=== PATIENT | female | born 2000 | race Caucasian/White ===

== ENCOUNTER 2022-03-30 18:14 | Emergency (ER) | payer OTHER ==
[2022-03-30] MEDS ORDERED: ACETAMINOPHEN TAB 500 MG TAB PO STA (19:41)
--- NOTE | 2022-03-30 20:41 | ED ---
Back Pain HPI - General Chief Complaint: Back Pain/Injury Stated Complaint: Lower Lt back pain/Preg/Sent by Urgent care Time Seen by Provider: 03/30/22 19:32 Source: patient Limitations: no limitations - History of Present Illness Initial Comments: Patient is a 21-year-old female presenting with chief complaint of left-sided leg and back pain. Patient was seen at urgent care today for this pain. Patient states that she does heavy lifting daily at work. States that the pain started today. Patient is known to be , she is not sure how far along she is. Her last menstrual cycle was in the middle of January, however she states that it was only 2 days long so she is unsure if this was a normal period. Patient has not taken any pain medication at home. She states that she was sent here by urgent care due to concern for a blood clot. Patient is having cramping pain behind her knee and the upper calf. She denies any chest pain, difficulty breathing, abdominal pain, nausea, vomiting, vaginal bleeding or discharge. - Related Data Allergies Allergy/AdvReac Type Severity Reaction Status Date / Time No Known Allergies Allergy Verified 03/30/22 18:58 Review of Systems ROS Statement: Those systems with pertinent positive or pertinent negative responses have been documented in the HPI. ROS Other: All systems not noted in ROS Statement are negative. Past Medical History Past Medical History: No Reported History History of Any Multi-Drug Resistant Organisms: None Reported Past Surgical History: No Surgical Hx Reported Past Psychological History: No Psychological Hx Reported Smoking Status: Vaper Past Alcohol Use History: None Reported Past Drug Use History: None Reported General Exam Limitations: no limitations General appearance: alert, in no apparent distress Head exam: Present: atraumatic, normocephalic, normal inspection Eye exam: Present: normal appearance, PERRL, EOMI. Absent: scleral icterus, conjunctival injection, periorbital swelling Neck exam: Present: normal inspection Respiratory exam: Present: normal lung sounds bilaterally. Absent: respiratory distress, wheezes, rales, rhonchi, stridor Cardiovascular Exam: Present: regular rate, normal rhythm, normal heart sounds. Absent: systolic murmur, diastolic murmur, rubs, gallop, clicks Extremities exam: Present: normal capillary refill. Absent: pedal edema Back exam: Present: paraspinal tenderness. Absent: vertebral tenderness Neurological exam: Present: alert, oriented X3, CN II-XII intact Psychiatric exam: Present: normal affect, normal mood Skin exam: Present: warm, dry, intact, normal color. Absent: rash Course Vital Signs 03/30/22 03/30/22 18:55 22:17 Temperature 99.2 F 98.7 F Pulse Rate 96 69 Respiratory 16 14 Rate Blood Pressure 112/63 106/69 O2 Sat by Pulse 99 100 Oximetry Medical Decision Making - Medical Decision Making Patient is a 21-year-old female presenting with chief complaint of left-sided back pain. Patient is currently , she does not know how far along she is. She was seen in urgent care today for this left-sided back pain, urgent care sent her here for evaluation due to left-sided calf pain, concern for DVT. On physical examination there is no lower extremity swelling. No recent travel or surgery. There is paraspinal muscle tenderness. She denies vaginal bleeding or discharge, no pelvic pain. Labs are grossly unremarkable. Urine appears contaminated, we'll send for culture. Patient is Alert ultrasound is negative for DVT. Ultrasound of the kidney and bladder shows no hydronephrosis, mass, or perinephric fluid. Ultrasound shows possible intrauterine gestational sac, no adnexal mass seen to suggest ectopic , follow-up exam is recommended. Patient has upcoming appointment with her HISTORIC SITES SUPERVISOR scheduled. Educated the patient on these findings and on supportive treatment and , take Tylenol as needed. Follow-up with PCP. Report back to ER with any new or worsening symptoms. Discussed return parameters and answered all questions. Patient conveyed verbal understanding and agreed to the plan. I discussed this case in detail with my attending Dr. Cloud - Lab Data Result diagrams: 03/30/22 20:52 03/30/22 20:52 Lab Results 03/30/22 03/30/22 03/30/22 Range/Units 20:52 20:52 20:52 WBC (3.8-10.6) k/uL RBC (3.80-5.40) m/uL Hgb (11.4-16.0) gm/dL Hct (34.0-46.0) % MCV (80.0-100.0) fL MCH (25.0-35.0) pg MCHC (31.0-37.0) g/dL RDW (11.5-15.5) % Plt Count (150-450) k/uL MPV Neutrophils % % Lymphocytes % % Monocytes % % Eosinophils % % Basophils % % Neutrophils # (1.3-7.7) k/uL Lymphocytes # (1.0-4.8) k/uL Monocytes # (0-1.0) k/uL Eosinophils # (0-0.7) k/uL Basophils # (0-0.2) k/uL Sodium 136 L (137-145) mmol/L Potassium 3.9 (3.5-5.1) mmol/L Chloride 104 (98-107) mmol/L Carbon Dioxide 21 L (22-30) mmol/L Anion Gap 11 mmol/L BUN 9 (7-17) mg/dL Creatinine 0.53 (0.52-1.04) mg/dL Est GFR (CKD-EPI)AfAm >90 (>60 ml/min/1.73 sqM) Est GFR (CKD-EPI)NonAf >90 (>60 ml/min/1.73 sqM) Glucose 82 (74-99) mg/dL Calcium 8.8 (8.4-10.2) mg/dL Total Bilirubin 0.4 (0.2-1.3) mg/dL AST 25 (14-36) U/L ALT 25 (4-34) U/L Alkaline Phosphatase 71 (38-126) U/L Total Protein 6.8 (6.3-8.2) g/dL Albumin 4.4 (3.5-5.0) g/dL HCG, Quant 3935.3 mIU/mL Urine Color Light Yellow Urine Appearance Cloudy H (Clear) Urine pH 7.5 (5.0-8.0) Ur Specific [place] 1.016 (1.001-1.035) Urine Protein Negative (Negative) Urine Glucose (UA) Negative (Negative) Urine Ketones Negative (Negative) Urine Blood Negative (Negative) Urine Nitrite Negative (Negative) Urine Bilirubin Negative (Negative) Urine Urobilinogen <2.0 (<2.0) mg/dL Ur Leukocyte Esterase Large H (Negative) Urine RBC <1 (0-5) /hpf Urine WBC 3 (0-5) /hpf Ur Squamous Epith Cells 12 H (0-4) /hpf Urine Bacteria Occasional H (None) /hpf Hyaline Casts 1 (0-2) /lpf Urine HCG, Qual Detected (Not Detectd) 03/30/22 Range/Units 20:52 WBC 8.6 (3.8-10.6) k/uL RBC 4.22 (3.80-5.40) m/uL Hgb 12.9 (11.4-16.0) gm/dL Hct 37.8 (34.0-46.0) % MCV 89.6 (80.0-100.0) fL MCH 30.6 (25.0-35.0) pg MCHC 34.2 (31.0-37.0) g/dL RDW 12.0 (11.5-15.5) % Plt Count 248 (150-450) k/uL MPV 8.6 Neutrophils % 67 % Lymphocytes % 25 % Monocytes % 5 % Eosinophils % 1 % Basophils % 0 % Neutrophils # 5.8 (1.3-7.7) k/uL Lymphocytes # 2.2 (1.0-4.8) k/uL Monocytes # 0.5 (0-1.0) k/uL Eosinophils # 0.1 (0-0.7) k/uL Basophils # 0.0 (0-0.2) k/uL Sodium (137-145) mmol/L Potassium (3.5-5.1) mmol/L Chloride (98-107) mmol/L Carbon Dioxide (22-30) mmol/L Anion Gap mmol/L BUN (7-17) mg/dL Creatinine (0.52-1.04) mg/dL Est GFR (CKD-EPI)AfAm (>60 ml/min/1.73 sqM) Est GFR (CKD-EPI)NonAf (>60 ml/min/1.73 sqM) Glucose (74-99) mg/dL Calcium (8.4-10.2) mg/dL Total Bilirubin (0.2-1.3) mg/dL AST (14-36) U/L ALT (4-34) U/L Alkaline Phosphatase (38-126) U/L Total Protein (6.3-8.2) g/dL Albumin (3.5-5.0) g/dL HCG, Quant mIU/mL Urine Color Urine Appearance (Clear) Urine pH (5.0-8.0) Ur Specific [place] (1.001-1.035) Urine Protein (Negative) Urine Glucose (UA) (Negative) Urine Ketones (Negative) Urine Blood (Negative) Urine Nitrite (Negative) Urine Bilirubin (Negative) Urine Urobilinogen (<2.0) mg/dL Ur Leukocyte Esterase (Negative) Urine RBC (0-5) /hpf Urine WBC (0-5) /hpf Ur Squamous Epith Cells (0-4) /hpf Urine Bacteria (None) /hpf Hyaline Casts (0-2) /lpf Urine HCG, Qual (Not Detectd) Disposition Clinical Impression: Mechanical back pain Disposition: HOME SELF-CARE Condition: Good Instructions (If sedation given, give patient instructions): Acute Low Back Pain (ED) Additional Instructions: Follow-up with PCP and HISTORIC SITES SUPERVISOR. Report back to ER with any new or worsening symptoms. Take Tylenol as needed for pain control. Apply heat and ice as needed. Is patient prescribed a controlled substance at d/c from ED?: No Referrals: None,Stated [Primary Care Provider] - 1-2 days Time of Disposition: 22:51
[2022-03-30 21:41] LABS: Basophils % (A) 0 %; Eosinophils # (A) 0.1 k/uL (0-0.7); Eosinophils % (A) 1 %; HCT 37.8 % (34.0-46.0); HGB 12.9 gm/dL (11.4-16.0); Lymphocytes # (A) 2.2 k/uL (1.0-4.8); Lymphocytes % (A) 25 %; MCH 30.6 pg (25.0-35.0); MCHC 34.2 g/dL (31.0-37.0); MCV 89.6 fL (80.0-100.0); Mean Platelet Volume 8.6; Monocytes # (A) 0.5 k/uL (0-1.0); Monocytes % (A) 5 %; Neutrophils # (A) 5.8 k/uL (1.3-7.7); Neutrophils % (A) 67 %; Platelet Count 248 k/uL (150-450); RBC 4.22 m/uL (3.80-5.40); WBC 8.6 k/uL (3.8-10.6)
[2022-03-30 21:48] LABS: ALT 25 U/L (4-34); AST 25 U/L (14-36); African American GFR (CKD) >90 (>60 ml/min/1.73 sqM); Albumin 4.4 g/dL (3.5-5.0); Alkaline Phosphatase 71 U/L (38-126); Anion Gap 11 mmol/L; Blood Urea Nitrogen 9 mg/dL (7-17); Calcium 8.8 mg/dL (8.4-10.2); Carbon Dioxide 21 mmol/L (22-30); Chloride 104 mmol/L (98-107); Glucose 82 mg/dL (74-99); Non-African American GFR(CKD) >90 (>60 ml/min/1.73 sqM); Potassium 3.9 mmol/L (3.5-5.1); Sodium 136 mmol/L (137-145); Total Bilirubin 0.4 mg/dL (0.2-1.3); Total Protein 6.8 g/dL (6.3-8.2)
[2022-03-30 22:04] LABS: HCG,Quantitative Serum 3935.3 mIU/mL
--- NOTE | 2022-03-30 22:14 | US ---
EXAMINATION TYPE: US venous doppler duplex LE LT DATE OF EXAM: 03/30/2022 9:47 PM COMPARISON: NONE CLINICAL HISTORY: leg cramping. SIDE PERFORMED: Left TECHNIQUE: The lower extremity deep venous system is examined utilizing real time linear array sonog lia with graded compression, doppler sonography and color-flow sonography. VESSELS IMAGED: Common Femoral Vein Deep Femoral Vein Greater Saphenous Vein * Femoral Vein Popliteal Vein Small Saphenous Vein * Proximal Calf Veins (* superficial vessels) Left Leg: Negative for DVT IMPRESSION: No evidence of deep vein thrombosis in the left leg.
--- NOTE | 2022-03-30 22:15 | US ---
EXAMINATION TYPE: US kidneys/renal and bladder DATE OF EXAM: 03/30/2022 COMPARISON: NONE CLINICAL HISTORY: L flank pain. EXAM MEASUREMENTS: Right Kidney: 10.9 x 3.1 x 5.8 cm Left Kidney: 10.0 x 5.2 x 4.1 cm Right Kidney: No hydronephrosis or masses seen Left Kidney: No hydronephrosis or masses seen, partially obscured by overlying bowel gas Bladder: not distended, not seen IMPRESSION: No evidence of renal mass or obstruction. No perinephric fluid.
--- NOTE | 2022-03-30 22:17 | US ---
EXAMINATION TYPE: Transabdominal DATE OF EXAM: 03/30/2022 9:52 PM COMPARISON: NONE CLINICAL HISTORY: back pain, unsure how far along. EXAM PERFORMED: EXAM MEASUREMENTS: GESTATIONAL AGE / DATING Physician Established: Not yet established Dates by LMP: LMP unknown Dates by First Scan: No previous this is first scan Dates by Current Scan for: Unable to date by today's study MATERNAL ANATOMY Uterus: 6.7 x 4.5 x 5.3cm Right Ovary: 2.4 x 1.5 x 1.7cm Right ovary simple cyst measuring 3.3 x 1.7 x 1.8cm Left Ovary: 4.1 x 2.7 x 2.4cm Post CDS / Adnexa: wnl Probable corpus luteal cyst: 2.5 x 1.4 x 2.1cm GESTATION / SURVEY MSD: 0.5 (too early to date) Beta HcG (if available): Not available at this time IMPRESSION: There is a possible intrauterine gestational sac measuring 6 mm. No adnexal mass seen to suggest ecto pic . There is thick walled cyst on the left ovary measuring 2.5 cm. Follow-up exam recommen ded in 14 days to confirm living fetus.
[2022-03-30 22:31] LABS: Appearance,Urine Cloudy (Clear); Bacteria,Urine Occasional /hpf; Bilirubin,Urine Negative (Negative); Blood,Urine Negative (Negative); Color,Urine Light Yellow; Glucose,Urine (UA) Negative (Negative); Hyaline Casts,Urine 1 /lpf (0-2); Ketones,Urine Negative (Negative); Leukocyte Esterase,Urine Large (Negative); Nitrite,Urine Negative (Negative); PH, Urine 7.5 (5.0-8.0); Protein,Urine Negative (Negative); RBC,Urine <1 /hpf (0-5); Specific Gravity,Urine 1.016 (1.001-1.035); Squamous Epithelial Cell,Urine 12 /hpf (0-4); Urobilinogen,Urine <2.0 mg/dL (<2.0); WBC,Urine 3 /hpf (0-5)
[2022-03-30 23:21] VITALS: BP 112/68; PULSE 70; RESP 20; TEMP 97.8
== END 2022-03-30 23:20 | disposition home or self-care (01) ==
LOC: EC 18:14
DX: M54.50 Low back pain, unspecified (principal); F17.290 Nicotine dependence, other tobacco product, uncomplicated
CPT/HCPCS: 36415; 76770; 76801; 76817; 80053; 81001; 81025; 84702; 85025; 99283

== ENCOUNTER 2023-11-07 23:12 | Emergency (ER) | payer OTHER ==
[2023-11-07 23:37] VITALS: BP 126/72; PULSE 87; RESP 20; TEMP 98.6
--- NOTE | 2023-11-08 02:30 | US ---
EXAM: US First Trimester , Transabdominal CLINICAL HISTORY: ITS.REASON US Reason: bleeding after fall. 8 wks gest. LMP: 09/17/2023. Gestational age: 7 weeks 3 days. TECHNIQUE: Real-time transabdominal obstetrical ultrasound of the maternal pelvis and a first trimester with image documentation. COMPARISON: None. FINDINGS: Gestation: One. Mean sac diameter within normal limits. Yolk sac: 3 mm. CRL: 10 mm, gestational age: 7 weeks 1 day. heart rate: 133 bpm Placenta/amniotic fluid: Cannot be adequately evaluated due to the early gestational age. Uterus/cervix: The uterus measures 8.8 x 6.3 x 5.0 cm in size. No myometrial mass. Ovaries: Right ovary obscured by bowel gas. Left ovary measures 3.1 x 2.4 x 2.2 cm in size. No mass. Free fluid: No free fluid. . IMPRESSION: Alive intrauterine gestation with heart rate: 133 bpm Ultrasound estimated gestational age: 7 weeks 1 day. TRAM: 06/25/2024 Congruent dates .
--- NOTE | 2023-11-08 03:16 | ED ---
General Adult HPI - General Chief complaint: Vaginal Bleeding Stated complaint: Vaginal Bleeding, Fall, 8 Weeks Time Seen by Provider: 11/07/23 23:53 Source: patient Mode of arrival: ambulatory Limitations: no limitations - History of Present Illness Initial comments: This patient is a 23-year-old woman who believes she is approximately 8 weeks . She presents for evaluation after having fallen from hammock to the ground. She is having some lower abdominal cramping and has had some bright red spotting type bleeding. She has not noted passing any tissue. She denies other injuries in the fall. -: hour(s) Location: abdomen Quality: sharp, other (Cramping) Consistency: intermittent Improves with: none Worsens with: none Associated Symptoms: denies other symptoms - Related Data Previous Rx's Medication Instructions Recorded Cephalexin [Keflex] 500 mg PO Q6HR 1 Days #20 cap 07/12/22 Miconazole Nitrate [Miconazole 7 100 mg VAGINAL DAILY 7 Days #1 07/12/22 Vaginal Supp] suppositor Allergies Allergy/AdvReac Type Severity Reaction Status Date / Time No Known Allergies Allergy Verified 11/07/23 23:37 Review of Systems ROS Statement: Those systems with pertinent positive or pertinent negative responses have been documented in the HPI. ROS Other: All systems not noted in ROS Statement are negative. Constitutional: Denies: chills, weakness Respiratory: Denies: cough, dyspnea Cardiovascular: Denies: chest pain, palpitations, edema, syncope Gastrointestinal: Reports: as per HPI, abdominal pain. Denies: vomiting, diarrhea, melena, hematochezia Genitourinary: Reports: discharge. Denies: dysuria, hematuria Musculoskeletal: Denies: back pain Skin: Denies: rash Neurological: Denies: headache, weakness Past Medical History Past Medical History: No Reported History History of Any Multi-Drug Resistant Organisms: None Reported Past Surgical History: No Surgical Hx Reported Past Psychological History: Bipolar, Depression Smoking Status: Former smoker, Vaper Past Alcohol Use History: None Reported Past Drug Use History: None Reported General Exam Limitations: no limitations General appearance: alert, in no apparent distress Head exam: Present: atraumatic, normocephalic Eye exam: Present: normal appearance. Absent: scleral icterus, conjunctival injection Neck exam: Present: normal inspection, full ROM. Absent: tenderness Respiratory exam: Present: normal lung sounds bilaterally. Absent: respiratory distress, wheezes, rales, rhonchi, stridor, accessory muscle use Cardiovascular Exam: Present: regular rate, normal rhythm, normal heart sounds. Absent: systolic murmur, diastolic murmur, rubs, gallop GI/Abdominal exam: Present: soft. Absent: distended, tenderness, guarding, rebound, rigid, mass Extremities exam: Present: normal inspection, normal capillary refill. Absent: pedal edema, calf tenderness Back exam: Present: normal inspection. Absent: CVA tenderness (R), CVA tenderness (L) Neurological exam: Present: alert Skin exam: Present: warm, dry, intact, normal color. Absent: rash Course Vital Signs 11/07/23 23:25 Temperature 98.6 F Pulse Rate 87 Respiratory 20 Rate Blood Pressure 126/72 O2 Sat by Pulse 99 Oximetry Medical Decision Making - Medical Decision Making Was pt. sent in by a medical professional or institution (, PA, PROCESSING SUPERVISOR, urgent care, hospital, or senior living...) When possible be specific @ -[No] Did you speak to anyone other than the patient for history (EMS, parent, family, police, friend...)? What history was obtained from this source @ -[No] Did you review nursing and triage notes (agree or disagree)? Why? @ -[I reviewed and agree with nursing and triage notes] Were old charts reviewed (outside hosp., previous admission, EMS record, old EKG, old radiological studies, urgent care reports/EKG's, senior living records)? Report findings @ -[No old charts were reviewed] Differential Diagnosis (chest pain, altered mental status, abdominal pain women, abdominal pain men, vaginal bleeding, weakness, fever, dyspnea, syncope, headache, dizziness, GI bleed, back pain, seizure, CVA, palpatations, mental health, musculoskeletal)? @ -[Differential Vaginal Bleeding: Spontaneous , threatened , molar , ectopic , bloody show, incompetent cervix, abruptioplacenta, placenta previa, uterine rupture, dysfunctional uterine bleeding, hemorrhage, uterine fibroids, this is not meant to be an all-inclusive list. EKG interpreted by me (3pts min.). @ -[As above] X-rays interpreted by me (1pt min.). @ -[None done] CT interpreted by me (1pt min.). @ -[None done] U/S interpreted by me (1pt. min.). @ -[The patient had pelvic ultrasound that I interpreted as showing presence of intrauterine . heart tones approximately 130s What testing was considered but not performed or refused? (CT, X-rays, U/S, labs)? Why? @ -[None] What meds were considered but not given or refused? Why? @ -[None] Did you discuss the management of the patient with other professionals (professionals i.e. , PA, PROCESSING SUPERVISOR, lab, RT, psych nurse, protective services social worker, rubber curer, teacher, conservation enforcement officer, bilingual case manager)? Give summary @ -[No] Was smoking cessation discussed for >3mins.? @ -[No] Was critical care preformed (if so, how long)? @ -[No] Were there social determinants of health that impacted care today? How? (Homelessness, low income, unemployed, alcoholism, drug addiction, transportation, low edu. Level, literacy, decrease access to med. care, half-way, rehab)? @ -[No] Was there de-escalation of care discussed even if they declined (Discuss DNR or withdrawal of care, Hospice)? DNR status @ -[No] What co-morbidities impacted this encounter? (DM, HTN, Smoking, COPD, CAD, Cancer, CVA, ARF, Chemo, Hep., AIDS, mental health diagnosis, sleep apnea, morbid obesity)? @ -[None] Was patient admitted / discharged? Hospital course, mention meds given and route, prescriptions, significant lab abnormalities, going to OR and other pertinent info. @ -[Patient is a 23-year-old woman here to have evaluation after fall. She did have pelvic ultrasound which does not reveal definite abnormality. We discussed appropriate further care and follow-up including lifting restriction, bedrest for day, pelvic rest. Return parameters discussed Undiagnosed new problem with uncertain prognosis? @ -[No] Drug Therapy requiring intensive monitoring for toxicity (Heparin, Nitro, Insuli n, Cardizem)? @ -[No] Were any procedures done? @ -[No] Diagnosis/symptom? @ -[Acute fall injury Threatened miscarriage Acute, or Chronic, or Acute on Chronic? @ -[Acute uncomplicated Uncomplicated (without systemic symptoms) or Complicated (systemic symptoms)? @ -[Uncomplicated Side effects of treatment? @ -[No] Exacerbation, Progression, or Severe Exacerbation? @ -[No] Poses a threat to life or bodily function? How? (Chest pain, [place], [place], pneumonia, PE, COPD, DKA, ARF, appy, cholecystitis, CVA, Diverticulitis, Homicidal, Suicidal, threat to staff... and all critical care pts) @ -[No] - Lab Data Lab Results 11/08/23 11/08/23 Range/Units 00:30 01:45 HCG, Quant 046054.0 mIU/mL Blood Type B Positive Blood Type Recheck No Previous Record Bld Type Recheck Status [facility] ONLY Disposition Clinical Impression: Threatened Disposition: HOME SELF-CARE Condition: Good Instructions (If sedation given, give patient instructions): Threatened Miscarriage (ED) Is patient prescribed a controlled substance at d/c from ED?: No Referrals: None,Stated [Primary Care Provider] - 1-2 days
== END 2023-11-08 03:15 | disposition home or self-care (01) ==
LOC: EC 23:12
DX: O20.0 Threatened abortion (principal); O99.331 Smoking (tobacco) complicating pregnancy, first trimester; F17.290 Nicotine dependence, other tobacco product, uncomplicated; Z3A.08 8 weeks gestation of pregnancy
CPT/HCPCS: 36415; 76801; 84702; 86900; 86901; 99284

== ENCOUNTER 2024-06-16 06:00 | Inpatient (IN) | payer OTHER ==
[2024-06-16] MEDS ORDERED: OXYTOCIN 10 UNIT/ML 1 ML VIAL IM PRN (06:29)
[2024-06-16] MEDS ORDERED: TERBUTALINE 1 MG/ML VIAL SQ PRN (06:29)
[2024-06-16] MEDS ORDERED: METHYLERGONOVINE 0.2 MG/ML 1 ML AMP IM PRN (06:29)
[2024-06-16] MEDS ORDERED: LIDOCAINE 0.5% (PF) 5 MG/ML (50 ML SDV) SQ PRN (06:29)
[2024-06-16] MEDS ORDERED: miSOPROStoL 200 MCG TAB PO PRN (06:29)
[2024-06-16] MEDS ORDERED: CARBOPROST TROMETHAMINE 250 MCG/ML 1 ML AMP IM PRN (06:29)
[2024-06-16] MEDS ORDERED: TRANEXAMIC 1,000 MG/100ML-NACL 1,000 MG in EMPTY BAG 1 BAG IV PRN (06:29)
[2024-06-16] MEDS ORDERED: miSOPROStoL 200 MCG TAB RECTAL PRN (06:29)
[2024-06-16 06:36] VITALS: RESP 16
[2024-06-16] MEDS: LACTATED RINGERS 500 ML IV SCH (06:52)
[2024-06-16] MEDS: LACTATED RINGERS 1,000 ML IV SCH (06:52)
[2024-06-16] MEDS: OXYTOCIN 30 UNITS/500 ML NS 30 UNIT in SALINE 1 500ML.BAG IV SCH (06:57)
[2024-06-16 07:32] LABS: Basophils % (A) 0 %; Eosinophils # (A) 0.1 k/uL (0-0.7); Eosinophils % (A) 1 %; HCT 33.2 % (34.0-46.0); Lymphocytes # (A) 2.4 k/uL (1.0-4.8); Lymphocytes % (A) 25 %; MCH 27.7 pg (25.0-35.0); MCHC 33.2 g/dL (31.0-37.0); MCV 83.4 fL (80.0-100.0); Mean Platelet Volume 9.1; Monocytes # (A) 0.5 k/uL (0-1.0); Monocytes % (A) 5 %; Neutrophils # (A) 6.8 k/uL (1.3-7.7); Neutrophils % (A) 69 %; Platelet Count 274 k/uL (150-450); RBC 3.98 m/uL (3.80-5.40); RDW 14.4 % (11.5-15.5); WBC 9.9 k/uL (3.8-10.6)
[2024-06-16] MEDS: AMPICILLIN 2,000 MG in SODIUM CHLORIDE 0.9% 100 ML IVPB STA (07:42)
[2024-06-16] MEDS ORDERED: BUTORPHANOL 1 MG/ML 1 ML VIAL IV PRN (08:50)
--- NOTE | 2024-06-16 08:54 | P.HPOB ---
History of Present Illness H&P Date: 06/16/24 Chief Complaint: 39+ weeks, elective induction The patient is a 23-year-old 2 para 1-0-0-1 admitted at 39+ weeks as established by 19-week ultrasound. She is admitted for elective induction with all signs reassuring, category 1 heart rate tracing. Her has been essentially uncomplicated though she was late to care. She is known to be rubella nonimmune. Group B strep status is positive. Obstetrical history: 2 para 1-0-0-1 with 1 term vaginal delivery without complications. EDC of 06/23/2024 was established by 18-week ultrasound. Labo ratory workup demonstrates a blood type of B+ with a negative antibody screen. Rubella status is nonimmune. The remainder of the laboratory workup is within normal limits. 1 hour Glucola was normal and group B strep status is positive. Gynecologic history: Unremarkable with no history of any infections to include STDs. Review of Systems Review of systems is confined to history of present illness. Past Medical History Past Medical History: No Reported History History of Any Multi-Drug Resistant Organisms: None Reported Past Surgical History: No Surgical Hx Reported Past Anesthesia/Blood Transfusion Reactions: No Reported Reaction Past Psychological History: Bipolar, Depression Smoking Status: Former smoker, Vaper Past Alcohol Use History: None Reported Past Drug Use History: None Reported - Past Family History Father Family Medical History: No Reported History Medications and Allergies Home Medications Medication Instructions Recorded Confirmed Type Vit No.179/Iron/Folic 1 tab PO DAILY 06/16/24 06/16/24 History [ Tablet] Allergies Allergy/AdvReac Type Severity Reaction Status Date / Time No Known Allergies Allergy Verified 06/16/24 06:28 Exam Vital Signs Temp Pulse Resp BP Pulse Ox 06/16/24 06:31 97.0 F L 99 16 108/67 98 Intake and Output 06/15/24 06/16/24 06/16/24 22:59 06:59 14:59 Other: Weight 67.585 kg In general, this is a well-developed, well-nourished white female in no acute distress. Her heart has a regular rhythm and rate without murmur. Her lungs are clear to auscultation bilaterally in all sampson. Her abdomen is gravid, nondistended, has normal active bowel sounds, soft, nontender, and without any palpable masses aside from the uterine fundus. Her extremities are without any cyanosis, clubbing, or edema and are nontender to palpation bilaterally. Digital cervical examination demonstrates her cervix to be 4 cm dilated, 80% effaced, with the vertex and presentation at -2 station. Artificial rupture of membranes is carried out demonstrating clear fluid. Results Result Diagrams: 06/16/24 07:08 Abnormal Lab Results - Last 24 Hours (Table) 06/16/24 Range/Units 07:08 Hgb 11.0 L (11.4-16.0) gm/dL Hct 33.2 L (34.0-46.0) % Assessment and Plan (1) Group B streptococcal infection in Current Visit: Yes Status: Acute Code(s): O98.819 - OTH MATERNAL INFEC/PARASTC DISEASES COMP PREG, UNSP TRI; B95.1 - STREPTOCOCCUS, GROUP B, CAUSING DISEASES CLASSD [id number] SNOMED Code(s): 264485328 (2) Term Current Visit: Yes Status: Acute Code(s): Z34.90 - ENCNTR FOR SUPRVSN OF NORMAL , UNSP, UNSP TRIMESTER SNOMED Code(s): 19244216 Plan: The patient has been admitted for Pitocin augmentation which has been started. She has undergone artificial rupture of membranes. Antibiotic prophylaxis for group B strep has also been initiated. She will have close maternal and surveillance and expectant management will be practiced. She is a good candidate for either IV or epidural analgesia, whichever she may choose.
[2024-06-16] MEDS ORDERED: ZOLPIDEM 5 MG TAB PO PRN (12:07)
[2024-06-16] MEDS ORDERED: HYDROCORTISONE 2.5% RECTAL CREAM 30 GM TUBE RECTAL PRN (12:07)
[2024-06-16] MEDS ORDERED: diphenhydrAMINE 50 MG CAP PO PRN (12:07)
[2024-06-16] MEDS ORDERED: diphenhydrAMINE 50 MG/ML 1 ML VIAL IVP PRN ×2 (12:07)
[2024-06-16] MEDS ORDERED: LANOLIN CREAM 1 GM TUBE TOPICAL PRN (12:07)
[2024-06-16] MEDS ORDERED: diphenhydrAMINE 25 MG CAP PO PRN (12:07)
[2024-06-16] MEDS ORDERED: SIMETHICONE 80 MG CHEWABLE PO PRN (12:07)
[2024-06-16] MEDS ORDERED: BENZOCAINE/MENTHOL SPRAY 1 GM/SPRAY AEROSOL TOPICAL PRN (12:07)
--- NOTE | 2024-06-16 12:10 | P.PROBDLV ---
Vaginal Delivery Note - . Vaginal Delivery Note: Patient is a 23-year-old 2 para 1-0-0-1 admitted at 39-0/7 weeks by good dating parameters. She is admitted for elective induction of labor with all signs reassuring, category 1 heart rate tracing. Her has been entirely uncomplicated though she is rubella nonimmune and found to be group B strep positive. On labor and delivery, she had Pitocin started as well as antibiotic prophylaxis for group B strep. She underwent artificial rupture of membranes for clear fluid. She had an epidural catheter placed for analgesia and progressed fairly quickly through the active phase of labor to complete. She pushed over the course of approximately 2-3 contractions to a normal spontaneous vaginal delivery of a viable 7 pound 2 ounce baby boy with Apgars of 9 at 1 minute and 9 at 5 minutes delivered in the direct occiput anterior position. There was a loose nuchal cord x 1 reduced after delivery of the . The placenta was delivered spontaneously, intact, and grossly normal with a grossly normal, velamentously and marginally inserted three-vessel cord. There were no lacerations of the perineum, vagina, or cervix. Estimated blood loss for the case was approximately 100 mL. There were no complications. Both mother and infant are resting comfortably in recovery.
[2024-06-16] MEDS ORDERED: OXYTOCIN 30 UNITS/500 ML NS 30 UNIT in SALINE 1 500ML.BAG IV SCH (12:15)
[2024-06-16] MEDS: MEASLES-MUMPS-RUBELLA VACC/PF 12,500 UNIT/0.5 ML VIAL SQ ONE (14:04)
[2024-06-16] MEDS: IBUPROFEN 800 MG TAB PO PRN (14:36)
[2024-06-16] MEDS: AMPICILLIN 1,000 MG in SODIUM CHLORIDE 0.9% 50 ML IVPB SCH (16:29)
[2024-06-16] MEDS: ACETAMINOPHEN TAB 500 MG TAB PO PRN (18:35)
[2024-06-16] MEDS: SENNOSIDES-DOCUSATE SODIUM 1 EACH TAB PO SCH (22:34)
[2024-06-17 06:28] LABS: Basophils % (A) 0 %; Eosinophils # (A) 0.1 k/uL (0-0.7); Eosinophils % (A) 1 %; HCT 33.4 % (34.0-46.0); HGB 10.9 gm/dL (11.4-16.0); Hypochromasia Slight; Lymphocytes # (A) 2.9 k/uL (1.0-4.8); Lymphocytes % (A) 28 %; MCH 27.4 pg (25.0-35.0); MCHC 32.7 g/dL (31.0-37.0); MCV 83.8 fL (80.0-100.0); Mean Platelet Volume 8.7; Monocytes # (A) 0.6 k/uL (0-1.0); Monocytes % (A) 6 %; Neutrophils # (A) 6.3 k/uL (1.3-7.7); Neutrophils % (A) 62 %; Platelet Count 229 k/uL (150-450); RBC 3.99 m/uL (3.80-5.40); RDW 14.2 % (11.5-15.5); WBC 10.2 k/uL (3.8-10.6)
[2024-06-17 08:19] VITALS: BP 102/64; PULSE 66; TEMP 97.6
--- NOTE | 2024-06-17 11:06 | P.DS ---
Providers Date of admission: 06/16/24 06:10 Expected date of discharge: 06/17/24 Attending physician: Gregorio De Guzman Primary care physician: Stated None - Discharge Diagnosis(es) (1) Group B streptococcal infection in Current Visit: Yes Status: Acute (2) Term Current Visit: Yes Status: Acute (3) Normal spontaneous vaginal delivery Current Visit: Yes Status: Acute Hospital Course: Patient is a 23-year-old 2 para 1-0-0-1 admitted at 39 and 1 sevenths weeks by good dating parameters. She is admitted for elective induction with all signs reassuring. On labor delivery, she had a category 1 heart rate tracing. Her was uncomplicated though she was somewhat late to care and was found to be rubella nonimmune. She additionally at term was found to be group B strep positive. On labor and delivery, she had Pitocin started as well as antibiotic prophylaxis for group B strep. She underwent artificial rupture of membranes for clear fluid. She progressed fairly quickly through the active phase of labor after an epidural catheter was placed for analgesia. She did have over 4 hours after infusion of the antibiotic until delivery but then pushed fairly quickly thereafter to a normal spontaneous vaginal delivery of a viable 7 pound 2 ounce baby boy with Apgars of 9 at 1 minute and 9 at 5 minutes. Her course was unremarkable with vital signs remaining stable and her temperature was afebrile throughout. She was deemed stable for discharge on day #1 was discharged home to follow-up in the office in 6 weeks routinely. Discharge instructions included calling for any significantly increased bleeding or foul-smelling lochia, significantly increased fever abdominal pain, perineal complaints, breast complaints, or anything else that concerned her. She was additionally instructed to have nothing in the vagina for at least 6 weeks time to include intercourse. She understood her instructions and agrees to follow-up as noted above. Discharge medications included continued vitamins as she has opted to breast-feed. She was otherwise to use [id number] analgesic pain medications as needed. She was given a shot of Depo-Provera 150 mg intramuscularly prior to discharge for contraception and will likely follow-up with Nexplanon in the future in the office. Maternal blood type is B+ and rubella status was nonimmune. She therefore was also to receive the MMR vaccination prior to discharge. Procedures: #1. Pitocin augmentation #2. Antibiotic prophylaxis #3. Artificial rupture of membranes #4. Epidural analgesia #5. Normal spontaneous vaginal delivery Patient Condition at Discharge: Stable Plan - Discharge Summary New Discharge Prescriptions: No Action Vit No.179/Iron/Folic [ Tablet] 1 tab PO DAILY Discharge Medication List Vit No.179/Iron/Folic [ Tablet] 1 tab PO DAILY 06/16/24 [History] Follow up Appointment(s)/Referral(s): Gregorio De Guzman MD [STAFF PHYSICIAN] - 07/28/24 11:15 am Discharge Disposition: HOME SELF-CARE
[2024-06-17] MEDS: medroxyPROGESTERone 150 MG/ML 1ML VIAL IM ONE (11:32)
== END 2024-06-17 13:02 | disposition home or self-care (01) | DRG 560 ==
LOC: 4FBP 06:10
PROVIDERS: ADMIT Obstetrics & Gynecology; ATTEND Obstetrics & Gynecology
PROC: 10E0XZZ Delivery of Products of Conception, External Approach (ICD-10-PCS; principal; 2024-06-16)
PROC: 10907ZC Drainage of Amniotic Fluid, Therapeutic from Products of Conception, Via Natural or Artificial Opening (ICD-10-PCS; 2024-06-16)
PROC: 3E033VJ Introduction of Other Hormone into Peripheral Vein, Percutaneous Approach (ICD-10-PCS; 2024-06-16)
DX: O98.82 Other maternal infectious and parasitic diseases complicating childbirth (principal); B95.1 Streptococcus, group B, as the cause of diseases classified elsewhere; O69.81X0 Labor and delivery complicated by cord around neck, without compression, not applicable or unspecified; O99.824 Streptococcus B carrier state complicating childbirth; Z37.0 Single live birth; Z3A.39 39 weeks gestation of pregnancy; Z87.891 Personal history of nicotine dependence
CPT/HCPCS: 85025; 86850; 86900; 86901; 90471; 90707